=== PATIENT | female | born 1960 | race Caucasian/White ===

== ENCOUNTER 2018-11-02 14:22 | Observation (INO) | payer MEDICAID ==
[~2018-11-02] VITALS: Ht 157.5 cm; Wt 68.4 kg
[~2018-11-02 14:22] MED LIST: CALC200T3 PO; DOCU-131 PO; HYDR-3237 PO; LORA2TAB PO; OMEP-110 PO; OXYC-302 PO; OXYC10TA6 PO; PROM25TA10 PO
[2018-11-02 14:55] LABS: BASOPHILS # (AUTO) 0.06 x10^3/uL (0-0.1); BASOPHILS % (AUTO) 0 % (0-1); EOSINOPHILS # (AUTO) 0.08 x10^3/uL (0-0.4); EOSINOPHILS % (AUTO) 1 % (1-7); LYMPHOCYTES % (AUTO) 11 % (22-44); MD NO; MEAN CORPUSCULAR HEMOGLOBIN 32.9 pg (27.0-34.8); MEAN CORPUSCULAR HGB CONC 33.7 g/dL (32.4-35.8); MEAN CORPUSCULAR VOLUME 97.6 fL (80-100); MEAN PLATELET VOLUME 9.3 fL (7.4-10.4); MONOCYTES % (AUTO) 7 % (2-9); NEUTROPHILS # (AUTO) 11.99 x10^3/uL (1.8-6.8); NEUTROPHILS % (AUTO) 81 % (42-75); PLATELET COUNT 290 x10^3/uL (130-400)
[2018-11-02 15:05] LABS: ALANINE AMINOTRANSFERASE 31 U/L (12-78); ALBUMIN 3.9 g/dL (3.4-5.0); ANION GAP 10 mmol/L (5-15); CALCIUM 8.7 mg/dL (8.5-10.1); CHLORIDE 100 mmol/L (98-107); CREATININE 0.72 mg/dL (0.55-1.02)
--- NOTE | 2018-11-02 15:06 | NUR ---
Pt wheeled to room, with pt. Pt states XR is complete and labs have been drawn.
[2018-11-02 15:10] LABS: ALKALINE PHOSPHATASE 121 U/L (45-117); BILIRUBIN,TOTAL 0.4 mg/dL (0.2-1.0); TOTAL PROTEIN 7.9 g/dL (6.4-8.2); TROPONIN I < 0.015 ng/mL (0.000-0.045)
[2018-11-02] MEDS ORDERED: SODIUM CHLORIDE FLUSH 10ML SYR IVF ONE (16:00)
[2018-11-02] MEDS ORDERED: ONDANSETRON 2MG/ML, 2ML IVPush ONE ×2 (16:00→17:30)
[2018-11-02] MEDS ORDERED: ONDANSETRON 2MG/ML, 2ML ONE ×2 (16:07→17:17)
[2018-11-02] MEDS ORDERED: MORPHINE SULFATE 4 MG/ML, 1ML ONE ×3 (16:07→21:11)
--- NOTE | 2018-11-02 16:13 | NUR ---
PIV started, pt medicated per OCT. US at bedside.
[2018-11-02] MEDS: MORPHINE SULFATE 4 MG/ML, 1ML IVPush PRN ×2 (16:14→16:51)
--- NOTE | 2018-11-02 16:32 | NUR ---
Pt to imaging, with tech, via guradha.
--- NOTE | 2018-11-02 16:51 | NUR ---
PT BACK TO ROOM FROM IMAGING, PT MEDICATED PER MAR.
[2018-11-02] MEDS ORDERED: OMNIPAQUE 350 MG/ML, 100ML BOTTLE ONE (16:53)
--- NOTE | 2018-11-02 17:20 | NUR ---
Pt medicated per MAR.
[2018-11-02] MEDS ORDERED: DIAZEPAM 5 MG/ML, 2ML IV ONE (18:00)
--- NOTE | 2018-11-02 18:11 | NUR ---
Pt medicated per OCT. Pt requesting orange juice as she states she's "sometimes hypoglycemic."
--- NOTE | 2018-11-02 18:27 | NUR ---
Dr. Drake at bedside to evaluate pt.
--- NOTE | 2018-11-02 18:30 | NUR ---
Pt reports no relief from valium.
--- NOTE | 2018-11-02 18:41 | NUR ---
Lab at bedside for serial trop.
[2018-11-02 19:08] LABS: TROPONIN I < 0.015 ng/mL (0.000-0.045)
--- NOTE | 2018-11-02 19:22 | NUR ---
Pt resting on guradha, aware of plan to admit.
--- NOTE | 2018-11-02 19:35 | NUR ---
Urine sample collected from suction canister and sent to lab.
[2018-11-02] MEDS ORDERED: BISACODYL 10 MG SUPP PR PRN (20:00)
[2018-11-02] MEDS ORDERED: POLYETHYLENE GLYCOL 17 GM PACKET PO PRN (20:00)
[2018-11-02] MEDS ORDERED: ACETAMINOPHEN 325 MG TABLET PO PRN (20:00)
[2018-11-02] MEDS ORDERED: CYCLOBENZAPRINE 10 MG TABLET PO PRN (20:00)
[2018-11-02] MEDS ORDERED: NITROGLYCERIN 0.4 MG BOTTLE (25 TABS) SL PRN (20:00)
[2018-11-02] MEDS ORDERED: hydrALAzine 20 MG/ML, 1ML IVPush PRN (20:00)
[2018-11-02] MEDS ORDERED: LABETALOL 5 MG/ML SYRINGE IVPush PRN (20:00)
[2018-11-02] MEDS ORDERED: DOCUSATE 100 MG CAPSULE PO PRN (20:00)
--- NOTE | 2018-11-02 20:02 | NUR ---
Dr. Guerra at bedside to evaluate pt for admission.
--- NOTE | 2018-11-02 20:20 | NUR ---
Pt ambulated to bathroom, no assistance required. Pt requesting food and ok per MD for pt to have food until midnight.
--- NOTE | 2018-11-02 20:35 | NUR ---
Pt to US, with tech, via diane.
[2018-11-02 20:50] LABS: FREE T4 (FREE THYROXINE) 0.71 ng/dL (0.76-1.46); THYROID STIMULATING HORMONE 2.84 mIU/L (0.358-3.740)
[2018-11-02 20:54] LABS: HEMOGLOBIN A1C 5.3 % (4.2-6.3)
--- NOTE | 2018-11-02 21:10 | NUR ---
Telephone SBAR report given to RNJaylon. Pt made aware of new room assignment.
[2018-11-02] MEDS: morphine SULFATE 10 MG/ML, 1ML IVPush PRN (21:14)
[2018-11-02] MEDS ORDERED: POTASSIUM CHLORIDE 40 MEQ in SODIUM CHLORIDE 0.9% 500 ML IV ONE (22:00)
[2018-11-02] MEDS: NICOTINE 7 MG/24 HR PATCH.TD24 TD SCH (22:41)
[2018-11-02] MEDS: ERTAPENEM 1 GM in SODIUM CHLORIDE 0.9% 50 ML IV SCH (22:41)
[2018-11-02] MEDS: HEPARIN 5,000 UNITS/ML, 1ML SQ SCH (22:42)
[2018-11-02] MEDS: KETOROLAC 30 MG/1 ML IV PRN (22:55)
[2018-11-02] MEDS: SODIUM CHLORIDE 0.9% 1,000 ML IV SCH (22:55)
[2018-11-02 23:32] LABS: TROPONIN I < 0.015 ng/mL (0.000-0.045)
[2018-11-03] VITALS (9 sets, daily range): BP systolic 109–156; BP diastolic 69–85
[2018-11-03] MEDS: OXYcodone IR 5MG TABLET PO PRN ×3 (00:50→18:48)
[2018-11-03] MEDS: morphine SULFATE 10 MG/ML, 1ML IVPush PRN ×3 (02:47→19:43)
[2018-11-03 03:06] LABS: MICROSCOPIC NOT IND
[2018-11-03 03:17] LABS: CULTURE INDICATED? NO
[2018-11-03] MEDS ORDERED: morphine SULFATE 10 MG/ML, 1ML IVPush ONE (03:30)
[2018-11-03] MEDS: ONDANSETRON 2MG/ML, 2ML IVPush PRN ×2 (03:32→09:32)
[2018-11-03 06:03] LABS: MEAN CORPUSCULAR HEMOGLOBIN 33.5 pg (27.0-34.8); MEAN CORPUSCULAR HGB CONC 34.1 g/dL (32.4-35.8); MEAN CORPUSCULAR VOLUME 98.2 fL (80-100); MEAN PLATELET VOLUME 9.4 fL (7.4-10.4); PLATELET COUNT 229 x10^3/uL (130-400); RED BLOOD COUNT 3.52 x10^6/uL (3.82-5.3); RED CELL DISTRIBUTION WIDTH 14.9 % (9.6-15.2)
[2018-11-03 06:11] LABS: ANION GAP 7 mmol/L (5-15); CALCIUM 7.8 mg/dL (8.5-10.1); CHLORIDE 106 mmol/L (98-107)
[2018-11-03 06:18] LABS: ALANINE AMINOTRANSFERASE 21 U/L (12-78); ALKALINE PHOSPHATASE 93 U/L (45-117); BILIRUBIN,TOTAL 0.3 mg/dL (0.2-1.0); CHOL/HDL RATIO 4.7; CHOLESTEROL, TOTAL 227 mg/dL (140-239); CREATININE 0.72 mg/dL (0.55-1.02); HDL CHOL % 21 % (28-40); HDL CHOLESTEROL (DIRECT) 48 mg/dL (40-60); LDL CHOLESTEROL,CALCULATED 119 mg/dL (54-169); LDL/HDL RATIO 2.5 (0.5-3.0); TOTAL PROTEIN 6.4 g/dL (6.4-8.2); TRIGLYCERIDES 302 mg/dL (50-200); TROPONIN I < 0.015 ng/mL (0.000-0.045); VLDL CHOLESTEROL 60 mg/dL (0-25)
[2018-11-03] MEDS: HEPARIN 5,000 UNITS/ML, 1ML SQ SCH ×3 (06:33→22:18)
[2018-11-03] MEDS: ASPIRIN 325 MG TABLET EC PO SCH (06:33)
[2018-11-03] MEDS: SODIUM CHLORIDE 0.9% 1,000 ML IV SCH (06:33)
[2018-11-03 06:36] LABS: MD YES
[2018-11-03 06:38] LABS: BASOS#(MANUAL) 0.11 x10^3/uL (0-0.1); BASOS% (MANUAL) 1 % (0-1); EOS#(MANUAL) 0.11 x10^3/uL (0.0-0.4); EOS% (MANUAL) 1 % (1-7); LYMPH#(MANUAL) 2.97 x10^3/uL (1-3.4); LYMPHS% (MANUAL) 28 % (22-44); MONOS#(MANUAL) 0.74 x10^3/uL (0.3-2.7); MONOS% (MANUAL) 7 % (2-9); SEG#(MANUAL) 6.68 x10^3/uL (1.8-6.8); SEGS% (MANUAL) 63 % (42-75)
[2018-11-03 06:39] LABS: <PLATELET ESTIMATE> ADEQUATE; <PLT MORPHOLOGY> NORMAL PLT MORPH; <RBC MORPHOLOGY> NORMAL
[2018-11-03] MEDS: OMEPRAZOLE 20 MG CAPSULE.DR PO SCH (09:32)
[2018-11-03] MEDS ORDERED: REGADENOSON 0.4 MG/5 ML SYRINGE ONE (10:42)
[2018-11-03] MEDS ORDERED: MORPHINE SULFATE 4 MG/ML, 1ML ONE (19:38)
[2018-11-03] MEDS: NICOTINE 7 MG/24 HR PATCH.TD24 TD SCH (20:00)
[2018-11-03] MEDS: LORazepam 1MG TABLET PO PRN (22:18)
[2018-11-03] MEDS: ERTAPENEM 1 GM in SODIUM CHLORIDE 0.9% 50 ML IV SCH (22:18)
[2018-11-04] MEDS: OXYcodone IR 5MG TABLET PO PRN ×2 (00:07→03:33)
[2018-11-04 01:34] VITALS: BP 130/86
[2018-11-04] MEDS: ONDANSETRON 2MG/ML, 2ML IVPush PRN ×2 (03:35→17:52)
[2018-11-04] MEDS: HEPARIN 5,000 UNITS/ML, 1ML SQ SCH ×3 (05:42→21:38)
[2018-11-04] MEDS: ASPIRIN 325 MG TABLET EC PO SCH (05:42)
[2018-11-04 07:03] VITALS: BP 117/61
[2018-11-04] MEDS: OMEPRAZOLE 20 MG CAPSULE.DR PO SCH (08:08)
[2018-11-04] MEDS: morphine SULFATE 10 MG/ML, 1ML IVPush PRN ×4 (09:18→21:38)
[2018-11-04 13:24] VITALS: BP 121/79
[2018-11-04] MEDS: KETOROLAC 30 MG/1 ML IV PRN (16:40)
[2018-11-04] MEDS: METHOCARBAMOL 500 MG TABLET PO PRN (16:40)
[2018-11-04] MEDS ORDERED: METH500T7 PO (18:55)
[2018-11-04 19:19] LABS: BASOPHILS # (AUTO) 0.04 x10^3/uL (0-0.1); BASOPHILS % (AUTO) 0 % (0-1); EOSINOPHILS # (AUTO) 0.09 x10^3/uL (0-0.4); EOSINOPHILS % (AUTO) 1 % (1-7); LYMPHOCYTES # (AUTO) 0.76 x10^3/uL (1-3.4); LYMPHOCYTES % (AUTO) 8 % (22-44); MD NO; MEAN CORPUSCULAR HEMOGLOBIN 33.3 pg (27.0-34.8); MEAN CORPUSCULAR HGB CONC 34.1 g/dL (32.4-35.8); MEAN CORPUSCULAR VOLUME 97.8 fL (80-100); MEAN PLATELET VOLUME 9.1 fL (7.4-10.4); MONOCYTES # (AUTO) 0.61 x10^3/uL (0.2-0.8); MONOCYTES % (AUTO) 6 % (2-9); NEUTROPHILS % (AUTO) 85 % (42-75); PLATELET COUNT 272 x10^3/uL (130-400); RED BLOOD COUNT 3.74 x10^6/uL (3.82-5.3); RED CELL DISTRIBUTION WIDTH 14.6 % (9.6-15.2)
[2018-11-04 19:42] VITALS: BP 128/77
[2018-11-04] MEDS: NICOTINE 7 MG/24 HR PATCH.TD24 TD SCH (20:00)
[2018-11-04] MEDS ORDERED: MORPHINE SULFATE 4 MG/ML, 1ML ONE (21:33)
[2018-11-04] MEDS: LORazepam 1MG TABLET PO PRN (21:37)
[2018-11-05 01:34] VITALS: BP 119/73
[2018-11-05] MEDS: METHOCARBAMOL 500 MG TABLET PO PRN (03:22)
[2018-11-05] MEDS: ASPIRIN 325 MG TABLET EC PO SCH (04:55)
[2018-11-05] MEDS: KETOROLAC 30 MG/1 ML IV PRN (06:23)
[2018-11-05] MEDS: HEPARIN 5,000 UNITS/ML, 1ML SQ SCH (06:26)
[2018-11-05 07:41] VITALS: BP 121/78
[2018-11-05] MEDS: OMEPRAZOLE 20 MG CAPSULE.DR PO SCH (08:20)
[2018-11-05] MEDS: LORazepam 1MG TABLET PO PRN (08:20)
[2018-11-05] MEDS: OXYcodone IR 5MG TABLET PO PRN (08:33)
== END 2018-11-05 11:00 | disposition home or self-care (01) ==
LOC: ED 18:16 → EDIP 20:10 → INTOOBSV 20:10 → 5SO 21:30 → 3NW 11-03 16:00 → DCLOUNGE 11-05 10:43
PROVIDERS: ADMIT Internal Medicine; ATTEND Internal Medicine
DX: R07.89 Other chest pain (principal); E78.00 Pure hypercholesterolemia, unspecified; F17.210 Nicotine dependence, cigarettes, uncomplicated; F41.9 Anxiety disorder, unspecified; K21.9 Gastro-esophageal reflux disease without esophagitis; D72.829 Elevated white blood cell count, unspecified; Z86.010 Personal history of colon polyps; Z90.710 Acquired absence of both cervix and uterus
CPT/HCPCS: 36415; 71045; 71101; 71275; 76770; 78452; 80053; 80061; 81003; 83036; 83690; 83735; 84439; 84443; 84484; 85025; 90471; 90656; 93005; 93017; 93306; 93971; 96365; 96366; 96372; 96375; 96376; 99284; A9502; C9898; G0378; J1335; J1644; J1885; J2270; J2405; J2785; J3360; J3480; J7030; J7040; Q9967; 96374

== ENCOUNTER 2018-11-15 13:17 | Emergency (ER) | payer MEDICAID ==
[~2018-11-15] VITALS: Ht 157.5 cm; Wt 65.3 kg
[~2018-11-15 13:17] MED LIST changes: +METH500T7 PO
[2018-11-15] MEDS ORDERED: SODIUM CHLORIDE FLUSH 10ML SYR IVF ONE (14:00)
[2018-11-15 14:27] LABS: BASOPHILS # (AUTO) 0.32 x10^3/uL (0-0.1); BASOPHILS % (AUTO) 3 % (0-1); EOSINOPHILS # (AUTO) 0.11 x10^3/uL (0-0.4); EOSINOPHILS % (AUTO) 1 % (1-7); LYMPHOCYTES # (AUTO) 3.09 x10^3/uL (1-3.4); LYMPHOCYTES % (AUTO) 25 % (22-44); MD NO; MEAN CORPUSCULAR HEMOGLOBIN 32.9 pg (27.0-34.8); MEAN CORPUSCULAR HGB CONC 34.2 g/dL (32.4-35.8); MEAN CORPUSCULAR VOLUME 96.1 fL (80-100); MEAN PLATELET VOLUME 8.5 fL (7.4-10.4); MONOCYTES # (AUTO) 0.68 x10^3/uL (0.2-0.8); MONOCYTES % (AUTO) 6 % (2-9); NEUTROPHILS # (AUTO) 7.94 x10^3/uL (1.8-6.8); NEUTROPHILS % (AUTO) 65 % (42-75); PLATELET COUNT 420 x10^3/uL (130-400); RED BLOOD COUNT 4.15 x10^6/uL (3.82-5.3); RED CELL DISTRIBUTION WIDTH 15.1 % (9.6-15.2)
[2018-11-15 14:33] LABS: ALANINE AMINOTRANSFERASE 25 U/L (12-78); ALBUMIN 3.7 g/dL (3.4-5.0); ANION GAP 7 mmol/L (5-15); CHLORIDE 106 mmol/L (98-107); CREATININE 0.85 mg/dL (0.55-1.02)
[2018-11-15 14:36] LABS: ALKALINE PHOSPHATASE 105 U/L (45-117); BILIRUBIN,TOTAL 0.3 mg/dL (0.2-1.0); TOTAL PROTEIN 8.2 g/dL (6.4-8.2)
[2018-11-15] MEDS ORDERED: HYDROcodone/APAP 5/325 TABLET ONE (15:08)
[2018-11-15] MEDS ORDERED: OMNIPAQUE 350 MG/ML, 100ML BOTTLE ONE (15:08)
[2018-11-15] MEDS ORDERED: ONDANSETRON ODT 4 MG ONE (15:28)
[2018-11-15] MEDS ORDERED: HYDROcodone/APAP 5/325 TABLET PO ONE (15:30)
[2018-11-15] MEDS ORDERED: ONDANSETRON 2MG/ML, 2ML ONE (15:30)
[2018-11-15] MEDS ORDERED: ONDANSETRON 2MG/ML, 2ML IVPush ONE (15:30)
[2018-11-15] MEDS ORDERED: HYDROmorphone 2 MG/ML, 1ML IVPush ONE (16:00)
[2018-11-15] MEDS ORDERED: HYDROmorphone 1 MG/ML, 1ML ONE (16:10)
[2018-11-15 16:39] VITALS: BP 133/73
--- NOTE | 2018-11-15 16:40 | NUR ---
Patient/Caregiver given discharge instructions and they have confirmed that they understand the instructions. Patient ambulatory with steady gait. PAIN NOW 5
== END 2018-11-15 16:41 | disposition home or self-care (01) ==
LOC: ED 16:17
DX: M94.0 Chondrocostal junction syndrome [Tietze] (principal)
CPT/HCPCS: 36415; 71046; 74177; 80053; 83690; 85025; 93005; 96374; 96375; 99284; J1170; J2405; Q9967

== ENCOUNTER → 2019-01-25 | Outpatient (CLI) | payer MEDICAID | END | disposition home or self-care (01) | LOC: RAD 14:20 | PROVIDERS: ATTEND Orthopaedic Surgery | DX: Z01.818 Encounter for other preprocedural examination (principal); M19.072 Primary osteoarthritis, left ankle and foot ==